=== PATIENT | male | born 1955 | race African-American/Black ===

== ENCOUNTER 2018-04-13 10:51 | Emergency (ER) | payer OTHER ==
--- NOTE | 2018-04-13 13:03 | RAD ---
RADIOGRAPH RIGHT KNEE 4 VIEWS: 04/13/2018 HISTORY: A 62-year-old male with persistent posttraumatic pain after fall on 04/09/2018. FINDINGS: No degenerative changes of the 3 compartments. No fracture or any other significant focal osseous ab normality. Edema in Hoffa's fat pad. Edema in the anterior superficial soft tissues. Heavy atheros clerotic calcification of popliteal artery and its branches. IMPRESSION: 1. Soft tissue edema. 2. No fracture. 3. 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 POS: EMILY
== END 2018-04-13 12:18 | disposition home or self-care (01) ==
LOC: MADERS 10:51
DX: S80.01XA Contusion of right knee, initial encounter (principal); S39.82XA Other specified injuries of lower back, initial encounter; I10 Essential (primary) hypertension; E10.9 Type 1 diabetes mellitus without complications; F17.210 Nicotine dependence, cigarettes, uncomplicated; Z79.899 Other long term (current) drug therapy; Z79.84 Long term (current) use of oral hypoglycemic drugs; W19.XXXA Unspecified fall, initial encounter

== ENCOUNTER 2023-04-24 09:30 | Emergency (ER) | payer MEDICAID, OTHER ==
[2023-04-24 10:29] LABS: ALT (SGPT) 42 U/L (8-55); AST (SGOT) 36 U/L (5-34); Albumin 3.7 g/dL (3.4-4.8); Alkaline Phosphatase 224 U/L (40-110); Anion Gap 14 mmol/L (10-20); BUN (Urea Nitrogen) 10 mg/dL (8.4-25.7); Bilirubin, Total 1.3 mg/dL (0.2-1.2); Calc. Creatinine Clearance 0 mL/min (70-130); Calcium 9.7 mg/dL (7.8-10.44); Carbon Dioxide 26 mmol/L (23-31); Chloride 104 mmol/L (98-107); Estimated GFR 72; Globulin 4.1 g/dL (2.4-3.5); Glucose 130 mg/dL (80-115); Magnesium 1.7 mg/dL (1.6-2.6); Potassium 3.8 mmol/L (3.5-5.1); Protein, Total 7.8 g/dL (5.8-8.1); Sodium 140 mmol/L (136-145)
[2023-04-24 10:32] LABS: Troponin I 0.064 ng/mL (< 0.028)
[2023-04-24 10:39] LABS: Anisocytosis SLIGHT = 6-15 cells (100X) (0-5/hpf); Band 1 % (5-11); Eosinophils 3 % (0-10); Hematocrit 64.6 % (42.0-52.0); Hemoglobin 19.2 g/dL (14.0-18.0); Lymphocytes 26 % (21-51); MDiff Complete? YES; Mean Corpuscular HGB CONC 29.6 g/dL (32.0-36.0); Mean Corpuscular Hemoglobin 28.5 pg (27.0-31.0); Mean Corpuscular Volume 96.2 fl (78.0-98.0); Mean Platelet Volume 8.9 fL (7.4-10.4); Monocytes 2 % (0-10); Neutrophil 37 % (42-75); Platelet Count 142 10x3/uL (130-400); Red Blood Cell (RBC) Count 6.72 mill/uL (4.70-6.10); White Blood Cell (WBC) Count 2.9 10x3/uL (4.8-10.8)
[2023-04-24 10:41] LABS: Manual Diff?? YES; Platelet Adequacy Comment Appears Adequate; Reactive Lymphocytes 31 % (0-10)
[2023-04-24 10:42] LABS: SARS-CoV-2 NAA Rapid Test Not Detected (NotDetected)
[2023-04-24 11:09] LABS: Acetaminophen Less than 10 mcg/mL (10.0-30.0); Alcohol Less than 10.0 mg/dL (Less than 10); Salicylate Less than 8.0 mg/dL (15.0-30.0)
[2023-04-24] MEDS ORDERED: Furosemide 40 MG (4 mL) VIAL ONE (11:17)
[2023-04-24 12:16] LABS: Bilirubin Negative (Negative); Blood, Urine Moderate (Negative); Clarity Clear (Clear); Glucose, Urine (Dipstick) Negative (Negative); Ketone, Urine Trace mg/dL (Negative); Leukocyte Trace (Negative); Nitrite Negative (Negative); Protein, Urine (Dipstick) > or equal to 300 mg/dL (Neg-Trace); pH, Urine 5.5 (5.0-9.0)
[2023-04-24 12:25] LABS: CAUTI Indications for Culture Pelvic or flank pain
[2023-04-24 12:27] LABS: Bacteria/HPF Rare-Few HPF (None Seen); Trichomonas/HPF 2+ HPF (None Seen)
[2023-04-24 12:28] LABS: Amphetamine Not Detected (NotDetected); Barbiturates Screen Not Detected (NotDetected); Benzodiazepine Screen Not Detected (NotDetected); Cocaine Metabolite Screen Not Detected (NotDetected); Methadone Not Detected (NotDetected); Methamphetamine Not Detected (NotDetected); Opiate Screen Not Detected (NotDetected); Oxycodone Screen Not Detected (NotDetected); Phencyclidine (PCP) Not Detected (NotDetected); THC/Cannabinoid Screen Not Detected (NotDetected); Tricyclic Screen Not Detected (NotDetected); Urine Culture Reflex No No
[2023-04-24] MEDS ORDERED: metroNIDAZOLE 250 MG TAB ONE (13:26)
[2023-04-24] MEDS ORDERED: Aspirin 325 MG TAB ONE (13:26)
== END 2023-04-24 14:14 | disposition short-term general hospital (02) ==
LOC: MADERS 09:30
DX: J96.00 Acute respiratory failure, unspecified whether with hypoxia or hypercapnia (principal); I11.0 Hypertensive heart disease with heart failure; I50.9 Heart failure, unspecified; D72.819 Decreased white blood cell count, unspecified; A59.9 Trichomoniasis, unspecified; R79.89 Other specified abnormal findings of blood chemistry; E11.9 Type 2 diabetes mellitus without complications; E78.00 Pure hypercholesterolemia, unspecified; J44.9 Chronic obstructive pulmonary disease, unspecified; F17.200 Nicotine dependence, unspecified, uncomplicated; Z79.82 Long term (current) use of aspirin; Z79.84 Long term (current) use of oral hypoglycemic drugs
CPT/HCPCS: 36415; 71045; 80053; 80306; 80307; 81001; 83735; 83880; 84484; 85025; 87804; 93005; 96374; J1940; U0002